=== PATIENT | female | born 1970 | race Caucasian/White ===

== ENCOUNTER 2023-11-24 16:48 | Outpatient (CLI) | payer BC, SELFPAY ==
--- NOTE | 2023-11-24 16:58 | XR_ITS ---
PROCEDURE INFORMATION: Exam: XR Left Hand Exam date and time: 11/24/2023 4:59 PM Age: 53 years old Clinical indication: Pain; Finger(s); Left TECHNIQUE: Imaging protocol: Radiologic exam of the left hand. Views: 3 or more views. COMPARISON: No relevant prior studies available. FINDINGS: Bones/joints: There is acute vertical oblique fracture involving the proximal to mid 5th distal phalanx. There is minor palmar displacement of the distal fracture fragment by approximately 1 mm. Intra-articular extension is equivocal.There is mild associated perifractural edema. Joint spaces appear otherwise preserved. Soft tissues: No additional significant soft tissue edema. No subcutaneous emphysema or radiopaque foreign bodies. IMPRESSION: Acute vertical oblique fracture involving the proximal to mid aspect of the 5th distal phalanx. Intra-articular extension is equivocal. There is mild bryanna fracture edema.
== END 2023-11-24 23:59 ==
LOC: RAD 16:49
PROVIDERS: PCP Nurse Practitioner Family; Visit Provider Nurse Practitioner Family
DX: M79.642 Pain in left hand (principal)
CPT/HCPCS: 73130

== ENCOUNTER 2023-12-24 09:59 | Outpatient (CLI) | payer BC, SELFPAY ==
--- NOTE | 2023-12-24 10:09 | XR_ITS ---
FINAL REPORT CLINICAL HISTORY: Lt Hand pain smashed hand 4 weeks ago COMPARISON: None FINDINGS: LEFT HAND: 3 views of the left hand were obtained. There is a subacute fracture of the fifth distal phalanx. Visualized joint spaces are normally aligned, with mild degenerative change.. Soft tissues are unremarkable. IMPRESSION: Subacute fracture distal phalanx fifth toe. Reviewed, Interpreted and Dictated by Von Gomez III, MD Transcribed by Rosemary Sanders Authenticated and [facility]
== END 2023-12-24 23:59 | disposition home or self-care (01) ==
LOC: RAD 10:01
PROVIDERS: PCP Nurse Practitioner Family; Visit Provider Orthopaedic Surgery
DX: M79.642 Pain in left hand (principal); S62.639A Displaced fracture of distal phalanx of unspecified finger, initial encounter for closed fracture
CPT/HCPCS: 73130

== ENCOUNTER 2024-08-17 20:13 | Emergency (ER) | payer BC, SELFPAY ==
[2024-08-17 20:15] VITALS: BP 235/113; PULSE 81; RESP 16; TEMP 36.9; O2SAT 97; BMI 31.1
--- NOTE | 2024-08-17 20:20 | ECG_ITS ---
APPROVED REPORT Exam: Resting ECG HR:76 bpm ECG Measurements Heart Rate 76 AXES OK 163 P 66 QRSd 93 QRS -9 QT 387 T 74 QTc 417 Conclusion Sinus rhythm Incomplete right bundle branch block No acute ischemic change Electronically signed by : ELZBIETA HERNÁNDEZ, 08/17/2024 21:53:04
[2024-08-17 20:45] LABS: Basophils # 0.1 K/mm3 (0-0.2); Basophils % 0.8 % (0.1-2.0); Eosinophils # 0.2 K/mm3 (0.0-0.4); Eosinophils % 2.8 % (0.1-12.0); Hematocrit 44.8 % (37.0-47.0); Hemoglobin 15.2 g/dL (12.2-16.2); Lymphocytes # 2.7 K/mm3 (0.7-4.5); Mean Corpuscular HGB Conc 33.9 g/dL (31.8-35.4); Mean Corpuscular Hemoglobin 31.3 pg (27.0-31.2); Mean Corpuscular Volume 92.4 fl (81-99); Monocytes # 0.7 K/mm3 (0.1-1.0); Neutrophils # 3.5 K/mm3 (1.8-7.8); Platelet Count 191 K/mm3 (142-424); Red Blood Count 4.85 M/mm3 (4.20-5.40); Red Cell Distribution Width 12.1 % (11.5-17.5); White Blood Count 7.2 K/mm3 (4.8-10.8)
[2024-08-17 20:52] LABS: Activated Partial Thrombo Time 24.9 seconds (22.8-30.6)
[2024-08-17 20:54] LABS: Albumin Level 4.7 g/dl (3.5-5.0); Chloride 106 mmol/L (98-107); Potassium 3.8 mmoL/L (3.5-5.1); Sodium 142 mmol/L (136-145)
[2024-08-17 20:57] LABS: Alanine Aminotransferase 51 U/L (12-78); Alkaline Phosphatase 92 U/L (38-126); Anion Gap 9.8 mEq/L (5-15); Aspartate Amino Transferase 50 U/L (14-36); Blood Urea Nitrogen 10 mg/dl (7-17); Carbon Dioxide 30 mmol/L (22.0-30.0); Creatinine Clearance Estimated 71 mL/min (50-200); Estimated Glomerular Filt Rate 52 ml/min (>60); GFR (African American) 63 ML/MIN (>60); Globulin 2.4 g/dL (1.3-3.2); Total Protein,Serum 7.1 g/dl (6.3-8.2)
[2024-08-17 20:58] LABS: Calcium 9.3 mg/dl (8.4-10.2); Glucose 84 mg/dl (74-100)
--- NOTE | 2024-08-17 21:05 | [facility].EDGENADL ---
Discharge Plan Disposition Patient Disposition: Home, Self-Care Chief Complaint: Recheck/Abnormal Lab/Rx Prescriptions Prescriptions: No Action tramadol 50 mg tablet 50 mg PO Q6H PRN (Reason: fracture pain) Qty: 16 0RF calcium carbonate-vitamin D3 [Calcium 600 + D(3)] 1 EACH tablet 1 ea PO DAILY aspirin [Aspir-81] 81 MG tablet,delayed release (DR/EC) 81 mg PO DAILY rosuvastatin 10 MG tablet 10 mg PO DAILY multivitamin with folic acid [Tab-A-Laurel] 1 EACH tablet 1 tab PO DAILY Referrals Follow up/Referrals: Melanie Woodard APRN [Primary Care Provider] - See instructions Activity Restrictions/Add. Instructions Additional Instructions/Restrictions: Call your family doctor to establish care for this visit to the emergency department and schedule follow-up within 48 hours to ensure improvement. If you have any worsening of your condition or any other concerning signs or symptoms, return to the emergency department or your primary care doctor for further evaluation. 50 mg losartan daily, take your blood pressure multiple times throughout the day to make sure it is not remaining high or going too low. Clinical Impressions Clinical Impression: Hypertension Print Language Print Language: B[place] Discharge ED Provider: Bhaskar Jimenes General Adult HPI General Chief complaint: Recheck/Abnormal Lab/Rx Stated complaint: Elevated BP 205/120 soa dizziness Time Seen by Provider: 08/17/24 20:21 Mode of Arrival: Ambulatory Source of Information: Patient Limitations: No Limitations Description of Symptoms (Recalled from ER Triage Doc. by RN): pt reports she took her bp tonight and it was elevated to 180s sysolic, so she took it on the other arm and it was 190s sysolic. pt had not taken her BP meds yet tonight. pt is short of breath as well, pt reports she has been stressed and recently quit smoking History of Present Illness HPI narrative: Please note that above description of symptoms, in this electronic medical record under categorization of recalled from ER triage doctor by RN are reflective of an initial nursing assessment, however, is not reflective of my full history and physical exam that was personally taken and clarified. Consequentially, this preceding description of symptoms, which may include the patient's categorized chief complaint in the EMR, do not reflect my personal clinical impression, and the ultimate description of history of present illness and patient stated complaints should be deferred to this section of the note. Unless stated otherwise or congruent with this section of the note, additional signs, symptoms, or incongruence should be interpreted as inaccurate with my clinical impression. Related Data Home Medications ?Medication ?Instructions ?Recorded ?Confirmed calcium carbonate-vitamin D3 600 1 ea PO DAILY Supplement 04/20/18 12/24/23 mg-125 unit tablet (Calcium) aspirin 81 mg tablet,delayed 81 mg PO DAILY thinner 04/23/18 12/24/23 release (Aspir-) multivitamin with folic acid 400 1 tab PO DAILY Supplement 04/23/18 12/24/23 mcg tablet (Tab-A-Laurel) rosuvastatin 10 mg tablet 10 mg PO DAILY Cholesterol 04/23/18 12/24/23 Previous Rx's ?Medication ?Instructions ?Recorded tramadol 50 mg tablet 50 mg PO Q6H PRN fracture pain #16 11/26/23 tabs Allergies Allergy/AdvReac Type Severity Reaction Status Date / Time bupropion (From [employer]) Allergy Mild Verified 12/24/23 11:09 [facility] Disclaimer: The information contained in this section may have been updated after the patient was seen, as this information can be updated by other users. Social History Smoking Status: Former smoker tobacco type: cigarettes packs per day: 1 alcohol intake: current alcohol intake frequency: holidays/special occasions only substance use type: denies use current occupational status: other Travel in the last 8 weeks: None caffeine: No Have you lived/traveled outside [place] in past 30 days?: No Contact w/someone who lives/traveled outside [place] past 30 days?: No Exposure to someone with infectious disease in past 14 days?: No Do you have a fever (greater than 100.4 F or 38 C)?: No Have you tested positive for COVID-19: No Exposed to someone with COVID-19 in past 14 days?: No Do you have a sore throat?: No Do you have a cough?: No Do you have any weakness?: No Do you have any diarrhea?: No Are you experiencing any unusual bleeding?: No Do you have any muscle aches/pain?: No Do you have any abdominal pain?: No Are you experiencing loss of taste or smell?: No Other Medical History Have you received the Flu Vaccine for this season: No Have you received the Pneumonia Vaccine: No ROS Obtained: Yes All systems reviewed & no additional complaints except as documented Physical Exam General General appearance: alert Head Head exam: atraumatic and normocephalic Eye Eye exam: Present normal appearance, PERRL and EOMI Neck Neck exam: Present normal inspection, full ROM and trachea midline Respiratory Respiratory exam: Absent respiratory distress, wheezes, stridor, accessory muscle use or prolonged expiratory phase Cardiovascular Cardiovascular exam: Present other (Pulses equal symmetric in upper and lower extremities) Abdominal Exam Abdominal exam: Present soft; Absent distention, tenderness or pulsatile mass Extremities Exam Extremities exam: Absent edema Neurological Exam Neurological exam: Present alert, oriented X3 and CN II-XII intact; Absent motor sensory deficit Skin Skin exam: Present warm and dry; Absent diaphoresis or erythema Medical Decision Making Medical Records Medical records reviewed: Yes I reviewed the patient's medical records. Screening: Per USPSTF and CDC recommendations, given the prevalence of disease in our region, it is our hospital?s policy to screen for HIV and viral Hepatitis for all patients aged 18 and over and those with ongoing risk factors. Thompson Inquiry Pt receiving controlled substance: No Thompson was queried for this patient: No Vital Signs: 08/17/24 20:15 Temperature 98.5 F Temperature Source Oral Pulse Rate [Right] 81 Respiratory Rate 16 Blood Pressure [Right Arm] 235/113 H Blood Pressure Mean [Right Arm] 153 02 Sat by Pulse Oximetry 97 Oxygen Delivery Method Room Air Lab Data Lab Results 08/17/24 20:21: WBC 7.2, RBC 4.85, Hgb 15.2, Hct 44.8, MCV 92.4, MCH 31.3 H, MCHC 33.9, RDW 12.1, Plt Count 191, MPV 10.0, Neut % (Auto) 49.0, Lymph % (Auto) 37.0, [place] % (Auto) 10.0 H, Eos % (Auto) 2.8, Baso % (Auto) 0.8, Neut # (Auto) 3.5, Lymph # (Auto) 2.7, [place] # (Auto) 0.7, Eos # (Auto) 0.2, Baso # (Auto) 0.1, APTT 24.9, Sodium 142, Potassium 3.8, Chloride 106, Carbon Dioxide 30, Anion Gap 9.8, BUN 10, Creatinine 1.10 H, Estimated Creat Clear 71, Estimated GFR 52 L, Est GFR ( Amer) 63, Glucose 84, Calcium 9.3, Total Bilirubin 1.0, AST 50 H, ALT 51, Alkaline Phosphatase 92, Troponin I < 0.01, NT-Pro-B Natriuret Pep < 20.0, Total Protein 7.1, Albumin 4.7, Globulin 2.4, Albumin/Globulin Ratio 2.0 H, TSH 1.48, Thyroxine (T4) 8.9, HIV Ag/Ab Combo Qual Negative 08/17/24 20:21 08/17/24 20:21 Orders (Tests/Meds): ORDERS Category Date Time Status Complete Blood Count Auto Diff Stat Lab 08/17/24 20:21 Completed Comprehensive Metabolic Panel Stat Lab 08/17/24 20:21 Completed HIV Combo Stat Lab 08/17/24 20:21 Completed Hep C Ab with Reflex to RNA Stat Lab 08/17/24 20:21 Received NT Pro Brain Natriuretic Pep. Stat Lab 08/17/24 20:21 Completed PTT [Activated Partial Thrombo Time] Stat Lab 08/17/24 20:21 Completed T4 (Thyroxine) Stat Lab 08/17/24 20:21 Completed TSH [Thyroid Stimulating Hormone] Stat Lab 08/17/24 20:21 Completed Troponin I Q3H Lab 08/17/24 23:45 Ordered Troponin I Q3H Lab 08/18/24 02:45 Ordered Troponin I Stat Lab 08/17/24 20:21 Completed Medical Decision Narrative: 54-year-old female history of hypertension presenting with hypertension. Patient states that she stopped smoking about 5 days prior to this cold turkey. Since that time, has been taking all of her meds as prescribed, however today she has not taken her hypertensive meds. She usually takes it at night. States that she felt lightheaded a couple of times a day and, because of this, took her blood pressure. It was in the 200s systolic, so came in for further evaluation. Patient denies chest pain, shortness of breath, syncope, nausea, vomiting, neurologic deficits, or any other concerns. No changes to her medications. History was obtained via conversation with patient. On arrival, patient hemodynamically stable, alert, oriented x4, appropriate, GCS 15, moving all extremities spontaneously, pupils equal and reactive to light. Full physical exam performed and significant for very clinically well-appearing female no acute distress. Cardiac exam normal, no lower extremity edema and speaking in full sentences. Differential includes electrolyte abnormality, medication noncompliance, CHF, anxiety, thyroid abnormality, among others. Patient placed on continuous cardiac monitoring and continuous pulse ox with initial blood pressure 235/113, heart rate 81, saturation 97% on room air. After speaking to patient for a few minutes, repeat blood pressure 175/110 independent interpretation of EKG shows sinus rhythm 76 bpm with no acute ischemic change. [place] 163, QRS 93, QTc 417.. Patient was given home losartan 25 mg for symptomatic management and correction of underlying abnormalities. Workup independently interpreted and significant for nonactionable CBC or chemistry. Stable kidney function. Negative BNP and troponin. On independent interpretation of imaging, no acute cardiopulmonary space disease. See radiology read for full review of final results. Heart score 2. On reevaluation, patient resting comfortably, still hypertensive. Because patient is symptomatic, I feel she is appropriate for outpatient management. Follow-up with her family doctor. Discussed increasing to 50 mg of losartan and taking blood pressure 2-3 times a day for the next few days to see where her blood pressure lands and if she drops low or remains high. Patient agreeable to this.. Given patient presentation, workup, history, this most likely represents hypertension, uncomplicated. Because patient at baseline without signs or symptoms of clinical decompensation, deemed appropriate for discharge. Results were relayed to patient who voiced understanding and were agreeable to outpatient management and follow up. I discussed my clinical impression with patient and answered all questions. At this time, the evidence for any other entities in the differential is insufficient to warrant any further testing or ED observation. This was explained as well. Advisory was given that persistent or worsening symptoms require further evaluation. I confirmed the understanding of this discussion. Web Services Architect disclaimer Much of this encounter note is an electronic operator assistant i cementing spoken language to printed text. Electronic operator assistant i cementing of the spoken language may permit errors. Although I have reviewed the note, some errors may still exist. Critical Care Critical Care Time Critical Care Time: No
[2024-08-17 21:13] LABS: Troponin I < 0.01 ng/ml (0.00-0.034)
[2024-08-17 21:15] LABS: T4 (Thyroxine) 8.9 ug/dl (5.53-11.0)
[2024-08-17 21:29] LABS: Thyroid Stimulating Hormone 1.48 uIU/mL (0.465-4.68)
[2024-08-17 21:39] LABS: NT Pro Brain Natriuretic Pep. < 20.0 pg/mL (0-125)
[2024-08-17 21:44] LABS: HIV Combo NEGATIVE (Negative)
[2024-08-17 22:05] VITALS: BP 194/105; PULSE 66; RESP 15; TEMP 36.9; O2SAT 97
[2024-08-19 05:53] LABS: HCV Ab Non Reactive (Non Reactive)
== END 2024-08-17 22:09 | disposition home or self-care (01) ==
PROVIDERS: Emergency Provider Emergency Medicine; PCP Nurse Practitioner Family
DX: I10 Essential (primary) hypertension (principal); R06.02 Shortness of breath; R42 Dizziness and giddiness
CPT/HCPCS: 80050; 80053; 83880; 84436; 84443; 84484; 85025; 85730; 86803; 87389; 93005; 99283

== ENCOUNTER → 2024-09-15 08:53 | Outpatient (CLI) | payer BC, SELFPAY | LOC: SL 08:54 | PROVIDERS: PCP Nurse Practitioner Family; Visit Provider Nurse Practitioner Family | DX: R53.83 Other fatigue (principal); I10 Essential (primary) hypertension | CPT/HCPCS: G0399 ==

== ENCOUNTER → 2024-10-17 20:29 | Outpatient (CLI) | payer BC, SELFPAY | LOC: SL 20:32 | PROVIDERS: PCP Nurse Practitioner Family; Visit Provider Nurse Practitioner Family | DX: G47.33 Obstructive sleep apnea (adult) (pediatric) (principal); I10 Essential (primary) hypertension; G47.10 Hypersomnia, unspecified; R51.9 Headache, unspecified | CPT/HCPCS: 95810 ==